=== PATIENT | female | born 1990 | race Caucasian/White ===

== ENCOUNTER → 2019-12-15 11:10 | Outpatient (BNVA) | payer SELFPAY | PROVIDERS: Visit Provider Nurse Practitioner Family | DX: J02.9 Acute pharyngitis, unspecified (principal) | CPT/HCPCS: 87081; 87880 ==

== ENCOUNTER → 2020-04-09 10:14 | Outpatient (BNVA) | payer SELFPAY | PROVIDERS: Visit Provider Nurse Practitioner Family | DX: M25.561 Pain in right knee (principal); R53.83 Other fatigue; Z13.6 Encounter for screening for cardiovascular disorders | CPT/HCPCS: 73562; 80053; 80061; 82306; 82607; 84443; 85025; 85651; 86038; 86140; 86431 ==

== ENCOUNTER → 2020-04-29 10:10 | Outpatient (BNVA) | payer SELFPAY | PROVIDERS: Visit Provider Nurse Practitioner Family | DX: D64.9 Anemia, unspecified (principal); M25.561 Pain in right knee; L40.9 Psoriasis, unspecified; E55.9 Vitamin D deficiency, unspecified | CPT/HCPCS: 85025 ==

== ENCOUNTER → 2020-06-17 11:49 | Outpatient (BNVA) | payer SELFPAY | PROVIDERS: Visit Provider Nurse Practitioner Family | DX: N89.8 Other specified noninflammatory disorders of vagina (principal); R30.0 Dysuria | CPT/HCPCS: 81000; 81025; 84450; 87070; 87491; 87591; 87661 ==

== ENCOUNTER → 2020-07-28 10:32 | Outpatient (BNVA) | payer OTHER, SELFPAY | PROVIDERS: Visit Provider Nurse Practitioner Family | DX: Z20.828 Contact with and (suspected) exposure to other viral communicable diseases (principal) | CPT/HCPCS: 87635 ==

== ENCOUNTER → 2021-05-17 13:15 | Outpatient (BNVA) | payer OTHER, SELFPAY | PROVIDERS: Visit Provider Nurse Practitioner Family | DX: Z20.822 Contact with and (suspected) exposure to COVID-19 (principal) | CPT/HCPCS: 87635 ==

== ENCOUNTER → 2021-07-14 10:10 | Outpatient (BNVA) | payer SELFPAY | PROVIDERS: Visit Provider Nurse Practitioner Family | DX: R53.83 Other fatigue (principal) | CPT/HCPCS: 80053; 81000; 81025; 82306; 82607; 84443; 85025 ==

== ENCOUNTER → 2021-08-11 10:58 | Outpatient (BNVA) | payer SELFPAY | PROVIDERS: Visit Provider Nurse Practitioner Family | DX: M79.671 Pain in right foot (principal) | CPT/HCPCS: 73630 ==

== ENCOUNTER → 2021-08-27 10:19 | Outpatient (BNVA) | payer SELFPAY | PROVIDERS: Visit Provider Nurse Practitioner Family | DX: R30.0 Dysuria (principal) | CPT/HCPCS: 81003 ==

== ENCOUNTER → 2021-09-10 09:40 | Outpatient (BNVA) | payer MEDICAID, SELFPAY | PROVIDERS: Visit Provider Nurse Practitioner Women's Health | DX: N92.6 Irregular menstruation, unspecified (principal) | CPT/HCPCS: 81025 ==

== ENCOUNTER → 2021-10-26 09:40 | Outpatient (BNVA) | payer SELFPAY | PROVIDERS: Visit Provider Obstetrics & Gynecology | DX: Z34.80 Encounter for supervision of other normal pregnancy, unspecified trimester (principal) | CPT/HCPCS: 80307; 81000; 82950; 85027; 86592; 86762; 86803; 86850; 86900; 87086; 87340; 87491; 87591; 87624; 87806 ==

== ENCOUNTER 2021-11-23 10:55 | Emergency (ER) | payer MEDICAID, SELFPAY ==
[2021-11-23 11:05] VITALS: BP 128/80; PULSE 94; RESP 18; TEMP 36.6; O2SAT 99; BMI 39.2
--- NOTE | 2021-11-23 11:30 | W.ED.GENADLT ---
Documented by User: JOSE Angulo 11/24/21 08:45 HPI - General Adult General: Chief complaint: General Medical Stated complaint: 15 wks , cramping, headache Time Seen by Provider: 11/23/21 11:19 History of Present Illness: HPI narrative: Patient presents with vaginal itching and whitish discharge and swelling of her labia. Patient states she just finished antibiotics and feels she probably developed a yeast infection she has some cramping down in the vaginal area denies any bleeding. She is Dr. Downs on a regular basis denies any fever chills nausea or vomiting. Onset (ago): day(s) (1-2) Location: genitals Associated symptoms: Reports no associated symptoms; Deny chest pain, dyspnea, headache(s), nausea, rash or vomiting Review of Systems Narrative: Patient is 15 weeks Const: Denies: fever(s), chills or body aches Eyes: Denies: change in vision or blurry vision ENMT: Denies: throat pain or nasal congestion Card: Denies: chest pain or dyspnea on exertion Resp: Denies: dyspnea, productive cough or non-productive cough GI: Denies: abdominal pain, nausea or vomiting : Reports: genital pruritis and vaginal discharge (Cramping vaginal area) Musc: Denies: extremity pain Skin/Breast: Denies: rash Neuro: Denies: headache(s) Psych: Denies: anxiety or depression Jorge L/Lymph: Denies: easy bruising PFSH ED PFSH: Medical History Constipation Psoriasis (a type of skin inflammation) Vitamin D insufficiency Surgical History History of cholecystectomy 2018 History of gastric bypass (~2013) Laparoscopic gastric bypass performed in [place]. The patient does not know what type of actual procedure was performed. Family History Mother Thyroid disease Family/Other Thyroid disease Maternal uncle Father Diabetes Denies family history of Colon cancer Ovarian cancer Heart disease Hyperlipidemia Breast cancer Hypertension Uterine cancer Stroke Social History Second hand smoke exposure: No Alcohol intake: never Caregiver/support person: Yes Lives independently: Yes Household members: spouse and children Marital status: service: No Current occupational status: unemployed History of recent travel: No Current gender identity: Female Special ralph needs: No Course Vital Signs: Vital signs: Vital Signs Temperature 97.9 F 11/23/21 11:05 Pulse Rate 76 11/23/21 11:33 Respiratory Rate 16 11/23/21 11:33 Blood Pressure 138/86 11/23/21 11:33 Pulse Oximetry 98 11/23/21 11:33 MDM - General Adult MDM Narrative Medical decision making narrative: Patient presents with vaginal itching and whitish discharge. Patient recently finished antibiotics and believes she developed a vaginal infection. Patient has intermittent discomfort in her low back. Patient doesn't appear in acute distress. I contacted Dr. Dang's office and they were supposed to call back and notify patient of possible appointment today or later. I did discuss treatment plan Dr. Ware. Patient was provided prescriptions as follow-up Dr. Downs's office. Discharge Plan Discharge Patient Disposition: Home Clinical Impression: Vaginal yeast infection Condition: Stable Prescriptions: New Monistat 7 2 % cream 1 appful vaginal ONCE Qty: 45 0RF Diflucan 150 mg tablet 150 mg PO Q3D Qty: 2 0RF No Action PNV 119-iron fum-folic acid 29 mg iron- 1 mg tablet PO 0RF cholecalciferol (vitamin D3) 10 mcg (400 unit) capsule 10 mcg PO DAILY 0RF amoxicillin 875 mg tablet 875 mg PO BID Qty: 20 0RF Discharge Orders: Discharge ED (Routine); Ordered 11/23/21 Ordered By: Santiago Beckford Discharge Diet: Usual diet Discharge Activity: Resume usual activity Patient Instructions: Yeast Infection (ED) Activity Restrictions/Additional Instructions: Follow-up with medical provider as directed. Take medications as prescribed. Return to the ER or your medical provider if condition worsens. Please read and understand discharge instructions. If any questions ask please. Contact Dr. Downs's office for follow-up appointment either later today or tomorrow. Drink plenty of fluids Coding Level of Care Code ED Electronics Commodity Manager for Chg Fwd Documented by User: Mahendra Ware DO 11/30/21 06:16 HPI - General Adult General: Chief complaint: General Medical Stated complaint: 15 wks , cramping, headache Time Seen by Provider: 11/23/21 11:19 PFSH ED PFSH: Medical History Constipation Psoriasis (a type of skin inflammation) Vitamin D insufficiency Surgical History History of cholecystectomy 2018 History of gastric bypass (~2013) Laparoscopic gastric bypass performed in [place]. The patient does not know what type of actual procedure was performed. Family History Mother Thyroid disease Family/Other Thyroid disease Maternal uncle Father Diabetes Denies family history of Colon cancer Ovarian cancer Heart disease Hyperlipidemia Breast cancer Hypertension Uterine cancer Stroke Social History Second hand smoke exposure: No Alcohol intake: never Caregiver/support person: Yes Lives independently: Yes Household members: spouse and children Marital status: service: No Current occupational status: unemployed History of recent travel: No Current gender identity: Female Special ralph needs: No Course Vital Signs: Vital signs: Vital Signs Temperature 97.9 F 11/23/21 11:05 Pulse Rate 76 11/23/21 11:33 Respiratory Rate 16 11/23/21 11:33 Blood Pressure 138/86 11/23/21 11:33 Pulse Oximetry 98 11/23/21 11:33 MDM - General Adult MDM Narrative Medical decision making narrative: Chart reviewed and patient discussed with midlevel. Agree with assessment and plan. Discharge Plan Discharge Patient Disposition: Home Clinical Impression: Vaginal yeast infection Condition: Stable Prescriptions: New Monistat 7 2 % cream 1 appful vaginal ONCE Qty: 45 0RF Diflucan 150 mg tablet 150 mg PO Q3D Qty: 2 0RF No Action PNV 119-iron fum-folic acid 29 mg iron- 1 mg tablet PO 0RF cholecalciferol (vitamin D3) 10 mcg (400 unit) capsule 10 mcg PO DAILY 0RF amoxicillin 875 mg tablet 875 mg PO BID Qty: 20 0RF Discharge Orders: Discharge ED (Routine); Ordered 11/23/21 Ordered By: Santiago Beckford Discharge Diet: Usual diet Discharge Activity: Resume usual activity Patient Instructions: Yeast Infection (ED) Activity Restrictions/Additional Instructions: Follow-up with medical provider as directed. Take medications as prescribed. Return to the ER or your medical provider if condition worsens. Please read and understand discharge instructions. If any questions ask please. Contact Dr. Downs's office for follow-up appointment either later today or tomorrow. Drink plenty of fluids Coding Level of Care Code ED Electronics Commodity Manager for Shayan Judge
[2021-11-23 11:33] VITALS: BP 138/86; PULSE 76; RESP 16; O2SAT 98
--- NOTE | 2021-11-24 16:11 | DCPLANNER ---
Addendum entered by Lubna Way 12/03/21 07:08: Patient had a follow up appointment scheduled 11.30.21 with [facility] - patient did attend appointment. Original Note: framing manager had message that patient needed a follow up appointment at [facility]. framing manager called the [facility], spoke with Will, gave clinic patients information. framing manager was told that patients information would be printed and reviewed. Clinic will call patient with appointment information.
== END 2021-11-23 11:36 | disposition home or self-care (01) ==
LOC: ER 11:29
PROVIDERS: Emergency Provider Nurse Practitioner Family
DX: B37.3 Candidiasis of vulva and vagina (principal)
CPT/HCPCS: 12345; 99283

== ENCOUNTER 2021-11-23 12:51 | Emergency (ER) | payer MEDICAID, SELFPAY ==
[2021-11-23 12:57] VITALS: BP 122/80; PULSE 94; RESP 18; TEMP 36.3; O2SAT 100; BMI 39.2
--- NOTE | 2021-11-23 14:01 | W.ED.PREGNAN ---
HPI - General: Chief complaint: OB/Uterine Contractions Stated complaint: cramping, 15 weeks Time Seen by Provider: 11/23/21 12:59 History of Present Illness: HPI Narrative: Patient went to Dr. Downs's office and was taken back by a nurse and they contacted Dr. Downs and he said she needs come back to the ER. Think she might need COVID testing. Patient says she is having cramping across her low back and has a headache. Is having increased urinary frequency and still has same symptoms of vaginal discharge which is whitish and swelling of the labia. heart tones done and they are 130. Patient has a headache but does not have any other COVID symptoms. MD Complaint: other (Headache and cramping in her low back) Onset (ago): hour(s) Pain Consistency: constant Location: flank (Bilateral) Severity: moderate Vaginal discharge: other (Whitish and itching) Vaginal bleeding: none OB History - Current : no complications care: followed by OB Associated symptoms: Reports headache(s); Deny abdominal pain, nausea or vomiting Related Data: : 6 Review of Systems Const: Denies: fever(s), chills or body aches Eyes: Denies: change in vision or blurry vision ENMT: Denies: throat pain or nasal congestion Card: Denies: chest pain or dyspnea on exertion Resp: Denies: dyspnea, productive cough or non-productive cough GI: Denies: abdominal pain, nausea or vomiting Musc: Reports: back pain (Cramping bilateral flanks); Denies: extremity pain Skin/Breast: Denies: rash Neuro: Reports: headache(s) Psych: Denies: anxiety or depression Jorge L/Lymph: Denies: easy bruising PFSH ED PFSH: Medical History Constipation Psoriasis (a type of skin inflammation) Vitamin D insufficiency Surgical History History of cholecystectomy 2018 History of gastric bypass (~2013) Laparoscopic gastric bypass performed in [place]. The patient does not know what type of actual procedure was performed. Family History Mother Thyroid disease Family/Other Thyroid disease Maternal uncle Father Diabetes Denies family history of Colon cancer Ovarian cancer Heart disease Hyperlipidemia Breast cancer Hypertension Uterine cancer Stroke Social History Second hand smoke exposure: No Alcohol intake: never Caregiver/support person: Yes Lives independently: Yes Household members: spouse and children Marital status: service: No Current occupational status: unemployed History of recent travel: No Current gender identity: Female Special ralph needs: No Female Reproductive History: : 6 Physical Exam Const: COMMON NORMALS: patient oriented x3 GENERAL APPEARANCE: cooperative Resp: COMMON NORMALS: normal respiratory effort Cardio: COMMON NORMALS: regular rate and regular rhythm RATE: regular rate RHYTHM: regular rhythm Neuro: COMMON NORMALS: patient oriented x3 Skin: COMMON NORMALS: no rashes or lesions noted GENERAL SKIN EXAM: no rashes or lesions noted Course Vital Signs: Vital signs: Vital Signs Temperature 97.3 F L 11/23/21 12:57 Pulse Rate 84 11/23/21 16:07 Respiratory Rate 16 11/23/21 16:07 Blood Pressure 127/86 11/23/21 16:07 Pulse Oximetry 100 11/23/21 16:07 MDM - OB/Uterine Contractions MDM Narrative: Medical decision making narrative: Patient presents here with low back pain bilaterally. Patient also states she has a headache. Patient had lab work done given IV fluids along with Toradol. Lab is basically noncontributory except mild UTI. Patient responded well to fluids and Toradol headache is gone patient states she feels much better patient placed on Keflex instructed follow back up with Dr. Fajardo's office and continue with her yeast medication also. Baby weeks heart rate was 130. Lab Data: Labs: Lab Results 11/23/21 11/23/21 11/23/21 14:35 14:35 15:40 WBC 4.9 10^3/uL 10^3/ uL (4.0-10.0) RBC 4.60 10^6/uL 10^6 /uL (4.1-5.3) Hgb 12.2 g/dL g/dL (11.5-15.3) Hct 35.6 % L % (37.0-47.0) MCV 77.4 fl L fl (81-99) MCH 26.5 pg L pg (28.0-34.0) MCHC 34.3 g/dL g/dL (30.0-36.0) RDW 16.9 % H % (12.1-15.1) Plt Count 213 10^3/cmm 10^3 /cmm (130-400) MPV 10.5 fL H fL (7.4-10.4) Neut % (Auto) 85.0 % % Lymph % (Auto) 6.6 % % [place] % (Auto) 7.2 % % Eos % (Auto) 0.0 % % Baso % (Auto) 0.6 % % Neut # (Auto) 4.14 10^3/uL 10^3 /uL (1.8-7.7) Lymph # (Auto) 0.3 10^3/uL L 10^ 3/uL (0.8-4.8) [place] # (Auto) 0.4 10^3/uL 10^3/ uL (0.2-0.9) Eos # (Auto) 0.0 10^3/uL 10^3/ uL (0.0-0.8) Baso # (Auto) 0.0 10^3/uL 10^3/ uL (0.0-0.1) Nucleated RBC % (a uto) 0 % % Nucleated RBCs # 0.0 /100WBC /100W BC Sodium 132 mmol/L L mmol /L (136-145) Potassium 3.6 mmol/L mmol/L (3.5-5.1) Chloride 99 mmol/L mmol/L (98-107) Carbon Dioxide 18 mmol/L L mmol/ L (22-29) Anion Gap 18.6 (5-19) BUN 3 mg/dL L mg/dL (6-20) Creatinine 0.4 mg/dL L mg/dL (0.5-0.9) GFR Calculation 187.4 mL/min H mL /min (90-130) Glucose 92 mg/dL mg/dL (65-115) Calculated Osmolal ity 270 mOsm/kg L mOs m/kg (285-295) Calcium 8.1 mg/dL L mg/dL (8.5-10.5) Urine Color Yellow (Yellow) Urine Appearance Sl hazy (CLEAR) Urine pH 5 (5-7) Ur Specific Gravit y 1.025 (1.005-1.030) Urine Protein Neg (Negative) Urine Glucose (UA) Norm (Normal) Urine Ketones 2+ H (Negative) Urine Blood Neg (Negative) Urine Nitrate Negative (Negative) Urine Bilirubin Neg (Negative) Urine Urobilinogen Norm mg/dL mg/dL (Negative) Ur Leukocyte Jayleen ase 2+ H (Negative) Urine RBC 0-4 /hpf H /hpf (0-2) Urine WBC 10-15 /hpf H /hpf (0-5) Ur Squamous Epith Cells 15-25 /hpf H /hpf (0-5) Amorphous Sediment Not Reportable Urine Bacteria 1+ /hpf H /hpf (NONE) Urine Yeast Trace /hpf /hpf Discharge Plan Discharge Patient Disposition: Home Clinical Impression: UTI (urinary tract infection) Qualifiers: Urinary tract infection type: acute cystitis Hematuria presence: without hematuria Qualified Code(s): N30.00 - Acute cystitis without hematuria Condition: Stable Prescriptions: New cephalexin 500 mg capsule 500 mg PO Q8H 7 Days Qty: 21 RF: 0 No Action PNV 119-iron fum-folic acid 29 mg iron- 1 mg tablet PO RF: 0 cholecalciferol (vitamin D3) 10 mcg (400 unit) capsule 10 mcg PO DAILY RF: 0 amoxicillin 875 mg tablet 875 mg PO BID Qty: 20 RF: 0 Monistat 7 2 % cream 1 appful vaginal ONCE Qty: 45 RF: 0 Diflucan 150 mg tablet 150 mg PO Q3D Qty: 2 RF: 0 Discharge Orders: Discharge ED (Routine); Ordered 11/23/21 Ordered By: Santiago Beckford Discharge Diet: Usual diet Discharge Activity: Increase activity as tolerated Patient Instructions: Urinary Tract Infection in (ED) Activity Restrictions/Additional Instructions: Follow-up with medical provider as directed. Take medications as prescribed. Return to the ER or your medical provider if condition worsens. Please read and understand discharge instructions. If any questions ask please. Coding Level of Care Code ED Knockout Machine Operator for Chg Fwd Exam Expanded Problem Focused
[2021-11-23] MEDS: sodium chloride 0.9% 1,000 ML 999 ML IV (14:43)
[2021-11-23 14:45] LABS: Basophils % 0.6 %; Hematocrit 35.6 % (37.0-47.0); Hemoglobin 12.2 g/dL (11.5-15.3); Lymphocytes # 0.3 10^3/uL (0.8-4.8); Lymphocytes % 6.6 %; Mean Corpuscular HGB Conc 34.3 g/dL (30.0-36.0); Mean Corpuscular Hemoglobin 26.5 pg (28.0-34.0); Mean Corpuscular Volume 77.4 fl (81-99); Mean Platelet Volume 10.5 fL (7.4-10.4); Monocytes # 0.4 10^3/uL (0.2-0.9); Monocytes % 7.2 %; Neutrophils # 4.14 10^3/uL (1.8-7.7); Nucleated Red Blood Cells % 0 %; Platelet Count 213 10^3/cmm (130-400); Red Cell Distribution Width 16.9 % (12.1-15.1); White Blood Count 4.9 10^3/uL (4.0-10.0)
[2021-11-23] MEDS: ketorolac 30 mg/mL INJ 15 MG IVP (14:57)
[2021-11-23 15:09] LABS: Blood Urea Nitrogen 3 mg/dL (6-20); Calcium 8.1 mg/dL (8.5-10.5); Carbon Dioxide 18 mmol/L (22-29); Chloride 99 mmol/L (98-107); Glomerular Filtration Rate 187.4 mL/min (90-130); Glucose 92 mg/dL (65-115); Osmolality Calculated 270 mOsm/kg (285-295); Sodium 132 mmol/L (136-145)
[2021-11-23 15:11] LABS: Anion Gap 18.6 (5-19); Potassium 3.6 mmol/L (3.5-5.1)
[2021-11-23 15:56] LABS: Add Urine Microscopic? YES; Bilirubin Urine Neg (Negative); Blood Urine Neg (Negative); Glucose Urine UA Norm (Normal); Ketones Urine 2+ (Negative); Leukocyte Esterase Urine 2+ (Negative); Nitrate Urine Negative (Negative); Protein Urine Neg (Negative); Specific Gravity, Urine 1.025 (1.005-1.030); Urine Appearance SL Hazy (CLEAR); Urine Color Yellow (Yellow); Urobilinogen Urine Norm (Negative); pH Urine 5 (5-7)
[2021-11-23 16:04] LABS: RBC Urine 0-4 /hpf (0-2)
[2021-11-23 16:05] LABS: Add Urine Culture? No; Bacteria Urine 1+ /hpf; Squamous Epithelial Cell Urine 15-25 /hpf (0-5)
[2021-11-23 16:07] VITALS: BP 127/86; PULSE 84; RESP 16; O2SAT 100
== END 2021-11-23 16:40 | disposition home or self-care (01) ==
PROVIDERS: Emergency Provider Nurse Practitioner Family
DX: N30.00 Acute cystitis without hematuria (principal)
CPT/HCPCS: 80048; 81001; 85025; 96361; 96374; 99284; J1885; J7030

== ENCOUNTER → 2021-12-28 09:59 | Outpatient (BNVA) | payer MEDICAID, SELFPAY | PROVIDERS: Visit Provider Obstetrics & Gynecology | DX: Z36.89 Encounter for other specified antenatal screening (principal) | CPT/HCPCS: 76805 ==

== ENCOUNTER → 2021-12-31 10:49 | Outpatient (BNVA) | payer MEDICAID, SELFPAY | PROVIDERS: Visit Provider Obstetrics & Gynecology | DX: O23.40 Unspecified infection of urinary tract in pregnancy, unspecified trimester (principal); Z3A.00 Weeks of gestation of pregnancy not specified | CPT/HCPCS: 81000; 87077; 87086; 87184 ==

== ENCOUNTER → 2022-01-13 13:47 | Outpatient (BNVA) | payer MEDICAID, SELFPAY | PROVIDERS: Visit Provider Nurse Practitioner Family | DX: O23.42 Unspecified infection of urinary tract in pregnancy, second trimester (principal); Z3A.00 Weeks of gestation of pregnancy not specified | CPT/HCPCS: 81000; 81003 ==

== ENCOUNTER → 2022-01-25 09:43 | Outpatient (BNVA) | payer MEDICAID, SELFPAY | PROVIDERS: Visit Provider Obstetrics & Gynecology | DX: Z34.80 Encounter for supervision of other normal pregnancy, unspecified trimester (principal) | CPT/HCPCS: 82950; 84315 ==

== ENCOUNTER → 2022-01-26 13:48 | Outpatient (BNVA) | payer MEDICAID, SELFPAY | PROVIDERS: Visit Provider Obstetrics & Gynecology | DX: Z36.2 Encounter for other antenatal screening follow-up (principal) | CPT/HCPCS: 76816 ==

== ENCOUNTER → 2022-02-22 10:18 | Outpatient (BNVA) | payer MEDICAID, SELFPAY | PROVIDERS: Visit Provider Obstetrics & Gynecology | DX: Z34.80 Encounter for supervision of other normal pregnancy, unspecified trimester (principal) | CPT/HCPCS: 84315; 85027 ==

== ENCOUNTER → 2022-04-22 12:58 | Outpatient (BNVA) | payer MEDICAID, SELFPAY | PROVIDERS: Visit Provider Obstetrics & Gynecology | DX: Z34.90 Encounter for supervision of normal pregnancy, unspecified, unspecified trimester (principal) | CPT/HCPCS: 84315; 87081 ==

== ENCOUNTER 2022-04-29 09:45 | Outpatient (CLI) | payer MEDICAID, SELFPAY ==
[2022-04-29 10:00] VITALS: BMI 40.6
[2022-04-29 10:01] VITALS: BP 126/58; PULSE 70
[2022-04-29 10:06] VITALS: TEMP 35.9
[2022-04-29 10:54] VITALS: RESP 17
[2022-04-29 11:16] VITALS: BP 110/78; PULSE 73
[2022-04-29 11:21] VITALS: BP 110/78; PULSE 73; RESP 17
== END 2022-04-29 11:21 | disposition home or self-care (01) ==
LOC: OPOB 09:49 → OBGYN 09:54
PROVIDERS: Visit Provider Obstetrics & Gynecology
DX: O26.899 Other specified pregnancy related conditions, unspecified trimester (principal); Z3A.00 Weeks of gestation of pregnancy not specified; R10.9 Unspecified abdominal pain
CPT/HCPCS: 59025; 99211

== ENCOUNTER 2022-04-29 19:42 | Inpatient (IN) | payer MEDICAID, SELFPAY ==
[2022-04-29] VITALS (43 sets, daily range): BP systolic 99–156; BP diastolic 52–76; PULSE 61–86; RESP 17–20; O2SAT 88–100; BMI 40.6
[2022-04-29 21:19] LABS: Basophils # 0.1 10^3/uL (0.0-0.1); Basophils % 0.5 %; Eosinophils # 0.1 10^3/uL (0.0-0.8); Eosinophils % 0.3 %; Hematocrit 36.4 % (37.0-47.0); Hemoglobin 12.6 g/dL (11.5-15.3); Lymphocytes # 2.5 10^3/uL (0.8-4.8); Lymphocytes % 15.2 %; Mean Corpuscular HGB Conc 34.6 g/dL (30.0-36.0); Mean Corpuscular Hemoglobin 27.8 pg (28.0-34.0); Mean Corpuscular Volume 80.2 fl (81-99); Mean Platelet Volume 10.9 fL (7.4-10.4); Monocytes # 0.8 10^3/uL (0.2-0.9); Neutrophils # 12.71 10^3/uL (1.8-7.7); Neutrophils % 78.3 %; Nucleated Red Blood Cells % 0 %; Platelet Count 268 10^3/cmm (130-400); Red Blood Count 4.54 10^6/uL (4.1-5.3); Red Cell Distribution Width 13.5 % (12.1-15.1); White Blood Count 16.2 10^3/uL (4.0-10.0)
[2022-04-29] MEDS: lactated ringers 1,000 ML 999 ML IV ×2 (21:20→22:31)
[2022-04-29] MEDS: fentaNYL 50 mcg/mL INJ 2mL IVP (21:23)
--- NOTE | 2022-04-29 21:48 | PM.OPHPUD ---
Labor & Delivery H&P Update Date of Procedure: April 29, 2022 Date H&P Performed: 04/22/22 H&P update information: I have reviewed H&P completed within last 30 days, I have examined patient prior to procedure and Changes to prior documentation as noted here Changes to previous documentation: iup@ 37w5d presents for painful contractions. Cervix changed from 2cm to 6 cm and patient admitted for labor. status overall very reassuring. Admission Diagnosis: Related Problem List Diagnoses (1) Obesity affecting : (2) Supervision of other normal :
[2022-04-29] MEDS: oxytocin 30 UNIT/500 ML BAG 600 UNIT IV (23:30)
--- NOTE | 2022-04-29 23:38 | P.PCNOB_ITS ---
Delivery Note: Date of delivery: April 29, 2022 Pre-delivery diagnoses: iup@37w5d, spontaneous labor Post-delivery diagnoses: same-delivered Procedure: Delivering Physician: Conchis Estimated blood loss (mL): 5 Findings: term female in the DIO presentation Pre-Delivery Course: The patient presented for contractions. She was observed for 2 hours and was alexia about every 3 minutes. Her cervix made a small amount of change and she was admitted. She went from 3 cm to 6 cm in a couple of hours. She received an epidural for pain control, but it didn't give her any relief. She had complete cervical dilation. AROM of clear fluid and the patient began to push. Delivery: The patient had complete cervical dilation and began to push. The head delivered in the DIO position over an intact perineum under epidural anesthesia. The nose and mouth were bulb suctioned. The shoulders and body delivered atraumatically. The baby was placed onto the mother's abdomen. The cord was clamped and cut. Cord blood was obtained. The placenta delivered spontaneously. It was inspected and found to be intact. Inspection of the perineum revealed no repair was required and no lacerations. Estimated blood loss 5 mL. Apgars on baby were 8 at 1 minute and 9 at 5 minutes. Weight of baby is 6 pounds 14 ounces. Mother and baby were stable post delivery. History History History 6 Term 3 Miscarriages/Ectopic 2 0 Living Children 3 Coding Level of Care Code Acute Accounts Receivable Manager for Shayan Judge
[2022-04-30] VITALS (59 sets, daily range): BP systolic 97–155; BP diastolic 53–80; PULSE 48–76; RESP 16–23; TEMP 36.5–37.7; O2SAT 91–100
[2022-04-30] MEDS: miSOPROStol 200 mcg Tablet 800 MCG PR (00:25)
[2022-04-30] MEDS: lanolin oint 7 gm 1 APPLIC TOPICAL (01:02)
[2022-04-30] MEDS: benzocaine-menthol 78 gm Canister 1 SPRAY TOPICAL (01:02)
[2022-04-30] MEDS: loperamide 2 mg Capsule 4 MG PO (03:31)
[2022-04-30] MEDS: hyDROXYzine 25 mg Capsule 50 MG PO (03:33)
[2022-04-30] MEDS: HYDROcodone-acetaminophen 5-325 mg Tablet PO ×2 (03:33→17:12)
--- NOTE | 2022-04-30 07:15 | ANES.PREANE2 ---
Pre-Anesthetic Assessment Height/Weight: Height 1.65 m Weight 110.677 kg Temp Pulse Resp BP Pulse Ox 98.1 F 64 16 118/63 98 04/30/22 04:51 04/30/22 07:03 04/30/22 04:51 04/30/22 07:03 04/29/22 23:11 Preop Diagnosis: undesired fertility Operation Date: 04/30/22 12:10 Proposed Procedures p Post Bilateral Tubal Ligation(Bilateral) - Rosa Isela Balderrama MD Familial anesthetic complications: None Was Beta Cy taken within 24 hours: N/A Was Clonidine taken within 24 hours: N/A Last intake: Solids 04/29/2022 Clear liquid @ 0200 on 05/30/2022 Social No alcohol and No tobacco Exam alert, oriented x 3, clear to auscultation bilaterally and regular rate & rhythm Airway Submandibular: within normal limits Cervical ROM: within normal limits Mallampati: Class I Dentition: chipped (Multiple chipped teeth ) History/ROS No significant complaints Pulmonary None reported CV/HEM None reported Hgb 12.6 Plt 268 None reported Hepatic None reported GI None reported Metabolic Morbid Obesity s/p gastric bypass hx of cholecystecotmy Musc/skel None reported Hx of psoriasis Neuropsych None reported Anesthetic Plan ASA status: 2 Anesthesia: Anesthesia Evaluation and Regional (specify below) (Spinal) Other: We discussed risk and benefits of spinal anesthesia including infection, paralysis/catastrophic nerve injury, back bruising/pain, PDPH, conversion to general in case of spinal failure, intraoperative and PONV, life threatening allergic reaction, post operative ICU admission requiring prolonged intubation, stroke, heart attack. Risk of > 500 ml blood loss (7ml/kg in children): No Medications/Allergies Home Medications Medication Instructions Recorded Confirmed Last Taken Type vitamins no.119-iron 1 tab PO DAILY 06/14/21 04/29/22 Unknown History fumarate 29 mg-folic acid 1 mg tablet breast pump #1 ea 04/05/22 04/29/22 Unknown Rx Allergies Allergy/AdvReac Type Severity Reaction Status Date / Time adhesive tape Allergy Mild ALGY-Bliste Verified 04/29/22 11:09 r Current Medications Generic Name Dose Route Start Last Admin Trade Name Freq PRN Reason Stop Dose Admin Hydrocodone Bitart/Acetaminophen 1 - 2 tab 04/29/22 23:37 04/30/22 03:33 Hydrocodone-Acetaminophen 5-325 Mg Tablet PO 1 tab Q6H PRN Administration MODERATE TO SEVERE PAIN Benzocaine 1 spray 04/29/22 23:37 04/30/22 01:02 Benzocaine-Menthol 78 Gm Canister TOPICAL 1 can PRN PRN Administration PAIN Hydroxyzine Pamoate 50 mg 04/29/22 21:00 04/30/22 03:33 Hydroxyzine 25 Mg Capsule PO 50 mg QID PRN Administration sleep, agitation or itching Dextrose/Lactated Ringer's 1,000 mls @ 125 mls/hr 04/29/22 21:00 04/30/22 06:28 Dextrose 5%-Lactated Ringers IV Not Given .Q8H TUNDE Oxytocin 30 unit in 500 mls @ 600 mls/hr 04/29/22 21:00 04/30/22 00:45 Pitocin IV Infused .Q50M PRN Titration After delivery of infant Protocol Tranexamic Acid 1,000 mg/ 110 mls @ 330 mls/hr 04/29/22 21:00 04/30/22 00:41 Sodium Chloride IV Infused Q30M PRN Infusion BLEEDING Lanolin 1 applic 04/29/22 23:37 04/30/22 01:02 Lanolin Oint 7 Gm TOPICAL 1 tube PRN PRN Administration DRYNESS PFSH Anesthesia Medical History Constipation Psoriasis (a type of skin inflammation) Vitamin D insufficiency Surgical History History of cholecystectomy 2018 History of gastric bypass (~2013) Laparoscopic gastric bypass performed in [place]. The patient does not know what type of actual procedure was performed. Family History Mother Thyroid disease Family/Other Thyroid disease Maternal uncle Father Diabetes Denies family history of Colon cancer Ovarian cancer Heart disease Hyperlipidemia Breast cancer Hypertension Uterine cancer Stroke Social History Smoking and tobacco status: never smoked Second hand smoke exposure: No Alcohol intake: never Caregiver/support person: Yes Lives independently: Yes service: No History of recent travel: No Special ralph needs: No Female Reproductive History : 6 Data Anesthesia : 04/29/22 21:10 Short CBC 04/29/22 Range/Units 21:10 WBC 16.2 H (4.0-10.0) 10^3/uL Hgb 12.6 (11.5-15.3) g/dL Hct 36.4 L (37.0-47.0) % MCV 80.2 L (81-99) fl Plt Count 268 (130-400) 10^3/cmm Neut % (Auto) 78.3 % Neut # (Auto) 12.71 H (1.8-7.7) 10^3/uL Cardiac Studies: No Data to Display
--- NOTE | 2022-04-30 08:29 | ANE.PACU2 ---
Inpatient post-anesthesia follow up: Airway intact: Yes Vital signs: Temperature 98.1 F Pulse Rate 64 Respiratory Rate 16 Blood Pressure 118/63 Pulse Oximetry 98 Oxygen Delivery Me thod Room Air Oxygen Flow Rate Fraction of Inspir ed Oxygen Hydration adequate: Yes Nausea and vomiting: No Pain level: 1 Mental status: Baseline
--- NOTE | 2022-04-30 11:29 | PM.PN ---
Subjective Subjective: The patient is doing well this morning. She desires a tubal ligation and has been NPO since delivery Vitals/I&O/Wt Last Vital Signs Temp 98.2 F 04/30/22 09:15 Pulse 60 04/30/22 09:15 Resp 18 04/30/22 09:15 BP 115/77 04/30/22 09:15 Pulse Ox 98 04/30/22 09:15 04/29/22 04/30/22 04/30/22 22:59 06:59 14:59 Intake Total 1333 / 1333 919.683 / 2252.683 Output Total 300 / 300 Balance 1333 / 1333 619.683 / 1952.683 Weight last 48 hrs Weight 244 lb Physical Exam Const: COMMON NORMALS: no acute distress, patient oriented x3, no limitations, healthy appearing, alert and well nourished GENERAL APPEARANCE: cooperative, comfortable, well kempt and well developed ORIENTATION/CONSCIOUSNESS: Yes awake, Yes oriented to person, Yes oriented to place and Yes oriented to time Resp: COMMON NORMALS: normal respiratory effort EFFORT & INSPECTION: Yes able to speak in complete sentences GI: COMMON NORMALS: Soft to palpation and non-tender PALPATION: Yes Soft to palpation Extremity: COMMON NORMALS: no calf tenderness Neuro: COMMON NORMALS: patient oriented x3 SENSORIUM/ORIENTATION: Yes alert, Yes oriented to person, Yes oriented to place and Yes oriented to time Psych: APPEARANCE: Yes well kempt Data : 04/29/22 21:10 A&P Assessment and plan (1) Supervision of other normal : routine PP care plan tubal ligation today Status: Acute (2) Sterilization consult: Status: Acute Attestations Medical Necessity Statement*: The patient delivered before midnight last night. she will be her at least 2 midnights. Coding Level of Care Code Acute Publicity Writer for Shayan Fwd Diagnoses Supervision of other normal Z34.80 Sterilization consult Z30.09
[2022-04-30 12:55] LABS: Hematocrit 35.3 % (37.0-47.0); Hemoglobin 12.3 g/dL (11.5-15.3); Mean Corpuscular HGB Conc 34.8 g/dL (30.0-36.0); Mean Corpuscular Volume 80.4 fl (81-99); Mean Platelet Volume 10.6 fL (7.4-10.4); Platelet Count 244 10^3/cmm (130-400); Red Blood Count 4.39 10^6/uL (4.1-5.3); Red Cell Distribution Width 13.4 % (12.1-15.1); White Blood Count 12.8 10^3/uL (4.0-10.0)
--- NOTE | 2022-04-30 15:14 | PM.OP ---
Operative Report Date of procedure: April 30, 2022 Pre-op diagnosis: Preop Diagnosis undesired fertility Post-op diagnosis: same Post-op findings: normal appearing uterus, tubes and ovaries Procedure done: post bilateral tubal ligation Specimens removed/disposition: segments of bilateral fallopian tubes to pathology Surgeon: Rosa Isela Balderrama Anesthesia: Other (spinal) Estimated blood loss (mL): 0 IV fluids (mL): 300 Complications: none Condition: stable Disposition: floor Procedure: The patient was taken to the operating room where spinal anesthesia was administered and found to be adequate. She was prepped and draped in the usual fashion in the dorsal supine position. An infraumbilical incision was made and carried down to the underlying layer of fascia. The fascia was nicked in the midline and the peritoneum entered sharply with the Metzenbaum scissors. The the patient was tilted to the right and the fallopian tube identified. The fallopian tube was grasped with a Valencia clamp and the clamp was walked down the tube to the fimbria. An area mid tube was grasped and elevated and a window was made in the mesosalpinx. The fallopian tube was doubly ligated and then a segment of the tube was removed with the Metzenbaum scissors. There was excellent hemostasis. The fallopian tube was returned to the abdomen. The patient was then tilted to the left and using the same procedure the fallopian tube was grasped and elevated. The Choco clamps were walked down to the fimbria. A segment in the mid tube was elevated and a window made in the mesosalpinx. The fallopian tube was doubly ligated and a section removed with the Metzenbaum scissors. The fallopian tube was returned to the abdomen. There was excellent hemostasis. The fascia was closed with 0 Vicryl. The skin was closed with 3-0 Vicryl. The patient tolerated the procedure well. Sponge lap and needle counts were correct x3. She was taken to the recovery room in stable condition.
[2022-04-30] MEDS: docusate sodium 100 mg Capsule PO (16:20)
[2022-04-30] MEDS: ketorolac 30 mg/mL INJ IVP (21:38)
[2022-05-01] MEDS: ketorolac 30 mg/mL INJ IVP ×3 (03:15→14:15)
[2022-05-01 05:19] VITALS: BP 103/58; PULSE 67
[2022-05-01 05:25] VITALS: TEMP 36.9
[2022-05-01 05:41] LABS: Hematocrit 36.8 % (37.0-47.0); Hemoglobin 12.6 g/dL (11.5-15.3); Mean Corpuscular HGB Conc 34.2 g/dL (30.0-36.0); Mean Corpuscular Hemoglobin 27.9 pg (28.0-34.0); Mean Corpuscular Volume 81.6 fl (81-99); Mean Platelet Volume 10.7 fL (7.4-10.4); Platelet Count 226 10^3/cmm (130-400); Red Blood Count 4.51 10^6/uL (4.1-5.3); Red Cell Distribution Width 13.8 % (12.1-15.1); White Blood Count 9.8 10^3/uL (4.0-10.0)
--- NOTE | 2022-05-01 08:26 | ANE.PACU2 ---
Inpatient post-anesthesia follow up: Airway intact: Yes Vital signs: Temperature 98.4 F Pulse Rate 67 Respiratory Rate 20 Blood Pressure 103/58 Pulse Oximetry 100 Oxygen Delivery Me thod Room Air Oxygen Flow Rate Fraction of Inspir ed Oxygen Hydration adequate: Yes Nausea and vomiting: No Pain level: 2 Mental status: Baseline
[2022-05-01] MEDS: prenatal vitamin Capsule 1 CAP PO (08:37)
[2022-05-01] MEDS: docusate sodium 100 mg Capsule PO (08:37)
[2022-05-01 10:00] VITALS: RESP 16; TEMP 36.8
[2022-05-01 10:31] VITALS: BP 103/65; PULSE 57
--- NOTE | 2022-05-01 13:04 | PM.OBGYDC ---
Discharge Providers BRUSH WORKER Date of Admission: 04/29/22 21:01 Date of Discharge: 05/01/22 Attending Provider at Admission: Rosa Isela Balderrama MD Attending Provider at Discharge: Chase Downs MD Primary BRUSH WORKER: Chase Downs MD Diagnoses at Discharge Discharge Diagnosis (1) Supervision of other normal : Status: Acute (2) Sterilization consult: Status: Acute (3) Term delivered: Status: Acute (4) Status post bilateral salpingectomy: Status: Acute Reason for Visit Reason for Visit: Contractions Hospital Course Hospital Course Ms. Chapman is a 31 year old established patient with LMP of 08/08/2021, FAIZA 05/15/2022 based on LMP. Came into labor and delivery with an estimated gestational age of 37+5 weeks complaining of contractions. She had a rapid progression of labor and had a spontaneous vaginal delivery without epidural or complications. Immediate recovery was uneventful. She had requested permanent sterilization and has signed a consent prior for tubal ligation. tubal Acacian was performed without complications also. Immediate postop observation was uneventful. She is afebrile hemodynamically stable. Postoperative day 1. Tolerating diet well. Ambulating without difficulty. Information Peripartum Data: Infant Delivery Method: Vaginal Physical Exam Narrative: GA; alert and oriented x 3 HEENT: normal Breasts: engorged Nipples - skin intact Lungs; clear to auscultation Heart: regular rhythm, no murmurs. Abd: Appropriately tender. BS+. Uterine fundus below umbilicus. No Fundal Tenderness. minimal tenderness, incision clean and dry, no redness, pain or edema. Perineum: normal lochia. Extremities: no edema, no cyanosis, no tenderness. History History History 6 Term 3 Miscarriages/Ectopic 2 0 Living Children 3 Discharge Data Studies Completed and Pending Pending at discharge Category Date Time Status Pathology: Surgical [PTH] Routine Pth 04/30/22 14:57 Ordered Laboratory Results WBC 9.8 10^3/uL (4.0-10.0) 05/01/22 05:20 RBC 4.51 10^6/uL (4.1-5.3) 05/01/22 05:20 Hgb 12.6 g/dL (11.5-15.3) 05/01/22 05:20 Hct 36.8 % (37.0-47.0) L 05/01/22 05:20 MCV 81.6 fl (81-99) 05/01/22 05:20 MCH 27.9 pg (28.0-34.0) L 05/01/22 05:20 MCHC 34.2 g/dL (30.0-36.0) 05/01/22 05:20 RDW 13.8 % (12.1-15.1) 05/01/22 05:20 Plt Count 226 10^3/cmm (130-400) 05/01/22 05:20 MPV 10.7 fL (7.4-10.4) H 05/01/22 05:20 Neut % (Auto) 78.3 % 04/29/22 21:10 Lymph % (Auto) 15.2 % 04/29/22 21:10 [place] % (Auto) 5.0 % 04/29/22 21:10 Eos % (Auto) 0.3 % 04/29/22 21:10 Baso % (Auto) 0.5 % 04/29/22 21:10 Neut # (Auto) 12.71 10^3/uL (1.8-7.7) H 04/29/22 21:10 Lymph # (Auto) 2.5 10^3/uL (0.8-4.8) 04/29/22 21:10 [place] # (Auto) 0.8 10^3/uL (0.2-0.9) 04/29/22 21:10 Eos # (Auto) 0.1 10^3/uL (0.0-0.8) 04/29/22 21:10 Baso # (Auto) 0.1 10^3/uL (0.0-0.1) 04/29/22 21:10 Nucleated RBC % (auto) 0 % 04/29/22 21:10 Nucleated RBCs # 0.0 /100WBC 04/29/22 21:10 Vitals Last Vital Signs Temp 98.2 F 05/01/22 10:00 Pulse 57 L 05/01/22 10:31 Resp 16 05/01/22 10:00 BP 103/65 05/01/22 10:31 Pulse Ox 100 04/30/22 17:12 Discharge Plan Discharge Patient Disposition: Home Condition: Stable Prescriptions: New hydrocodone-acetaminophen 5-325 mg tablet 1 tab PO Q4H PRN (Reason: pain) Qty: 20 0RF acetaminophen 325 mg capsule 325 mg PO Q4H PRN (Reason: fever or pain) Qty: 60 0RF Continued PNV 119-iron fum-folic acid 29 mg iron- 1 mg tablet 1 tab PO DAILY 0RF (DME) breast pump Device See Rx Instructions .Route Qty: 1 0RF Rx Instructions: As directed Discharge Orders: Discharge Order (Routine); Ordered 05/01/22 Ordered By: Chase Downs Referrals: Chase Downs MD [Physician] - 2 weeks Discharge Diet: Usual diet Discharge Activity: Limit activity as instructed Patient Instructions: Depression (DC), Bleeding (DC), Preeclampsia and Eclampsia After Delivery (GEN), Tubal Ligation (DC), OB Discharge Report, OB Food/Drug Interaction Guide, OB Care at Home, Opioid Safety, OB Home Care, OB Vaginal Deliveries - [facility], Abnormal Bleeding Activity Restrictions/Additional Instructions: 1. Please call [facility] on next working day to make your post-operative appointment in 2 weeks. 2. Please stay home until you come back to the clinic on first post-operative check up. 3. Please follow instructions on your medications CAREFULLY. 4. If you have abdominal incision, do not cover it unless dressing is necessary because of drainage. OK to shower, but avoid bath. Leave steri-strips until they fall off. If they are still on one week after surgery, you may remove them. 5. If you had vaginal surgery or vaginal repair, Dr. Downs may instruct you to take SITZ bath. 6. Yellow, blood tinged odorous vaginal discharge is usually normal after hysterectomy or vaginal surgeries. 7. No sexual intercourse, tampons, or douches until you are completely released from the post-operative care. 8. Avoid constipation by eating right and maybe using some Metamucil or Milk of Magnesia. 9. All prescription refills are given during the working hours. Please do no wait till it runs out. Call the clinic at [phone] before your medication runs out. The clinic will get in touch with your doctor to prescribe medications if necessary. 10. Please remain within 40 mile radius from our hospital because emergencies do happen now and then during the post-operative period. 11. If you have stairs at home, take one step at a time slowly and minimize the number of trips. It helps to stay in one floor for the next few days. No lifting except what you can lift by one hand until you are released from the post-operative care. 12. Driving is discouraged until you are well healed. It may be 3-4 weeks before you feel strong enough to drive. You should be able to turn and look through the rear window without pain and you should be able to push the brake pedal very hard without pain before you drive. No fast rules, but SAFETY should be your primary concern. DO NOT drive if you are on sedating medications such as narcotics. 13. Call the clinic (during working hours) to make urgent appointment or go to the Emergency room, if any of the following occurs: i. Vaginal bleeding becomes heavy, more than a period. ii. Incision becomes red and sore, or drains pus. iii. Your temperature is over 100.4 or you have chill. iv. IV site becomes red and swollen (a little ``knot?? is usually OK) v. Persistent nausea and vomiting vi. Persistent constipation or diarrhea vii. Rash or allergic reaction to medications. Discharge Attestations BRUSH WORKER Time Spent in Discharge Care*: greater than 30 min Coding Level of Care Code Acute Belt Maker for Shayan Judge Diagnoses Supervision of other normal Z34.80 Sterilization consult Z30.09 Term delivered O80 Status post bilateral salpingectomy Z90.79
[2022-05-01 14:11] VITALS: BP 122/87; PULSE 67
[2022-05-01 14:21] VITALS: BP 122/87; PULSE 67; RESP 16; TEMP 36.7
== END 2022-05-01 14:30 | disposition home or self-care (01) | DRG 798 ==
LOC: OPOB 19:42 → OBGYN 19:42
PROVIDERS: Admitting Provider Obstetrics & Gynecology; Visit Provider Obstetrics & Gynecology
PROC: 10E0XZZ Delivery of Products of Conception, External Approach (ICD-10-PCS; CPT 58605; principal; 2022-04-30 12:00)
DX: O99.214 Obesity complicating childbirth (principal); Z37.0 Single live birth; Z3A.37 37 weeks gestation of pregnancy; O75.89 Other specified complications of labor and delivery; K59.09 Other constipation; L40.9 Psoriasis, unspecified; E55.9 Vitamin D deficiency, unspecified; Z30.2 Encounter for sterilization
CPT/HCPCS: 36415; 51702; 59025; 59409; 85025; 85027; 88302; 96374; 96376; 99211; G0378; J0690; J1885; J2405; J2795; J3010; J3490

== ENCOUNTER → 2022-06-22 14:38 | Outpatient (BNVA) | payer MEDICAID, SELFPAY | PROVIDERS: Referring Provider Nurse Practitioner Family; Visit Provider Podiatrist Foot & Ankle Surgery | DX: M72.2 Plantar fascial fibromatosis (principal); M79.671 Pain in right foot; M79.672 Pain in left foot | CPT/HCPCS: 20550; 73630; 99203; J3301; J3490 ==

== ENCOUNTER → 2023-01-24 11:42 | Outpatient (BNVA) | payer MEDICAID, SELFPAY | PROVIDERS: PCP Nurse Practitioner Family; Visit Provider Nurse Practitioner Family | DX: E55.9 Vitamin D deficiency, unspecified (principal); N92.6 Irregular menstruation, unspecified | CPT/HCPCS: 80053; 82306; 82607; 84443; 85025 ==

== ENCOUNTER 2023-03-20 14:00 | Outpatient (CLI) | payer MEDICAID, SELFPAY ==
--- NOTE | 2023-03-20 14:15 | US_ITS ---
WS: [id number] US pelv w/transvag [id number] HISTORY: R10.2 - Pelvic and perineal pain COMPARISON: 10/08/2019 Uterus: 10.2 cm x 5.3 cm x 4.7 cm. Normal size anteverted uterus. No fibroid or mass. Endometrium: 1.1 cm. Normal. No mass or increased vascularity. Right ovary: 3.1 cm x 2.6 cm x 1.9 cm. Normal size and vascularity, no cystic or solid masses. Left ovary: 3.4 cm x 2.6 cm x 1.9 cm. Normal size and vascularity, no cystic or solid masses. No free fluid in the cul-de-sac. US/US pelv w/transvag [id number] IMPRESSION: Normal pelvic ultrasound.
== END 2023-03-20 14:01 | disposition home or self-care (01) ==
LOC: RAD 14:02
PROVIDERS: PCP Nurse Practitioner Family; Visit Provider Nurse Practitioner Family
DX: R10.2 Pelvic and perineal pain (principal)
CPT/HCPCS: 76830; 76856

== ENCOUNTER 2023-06-28 08:08 | Outpatient (CLI) | payer MEDICAID, SELFPAY ==
--- NOTE | 2023-06-28 08:12 | XR_ITS ---
WS: [id number] EXAMINATION: XR knee LT 3V* [id number] REASON FOR EXAM: M25.562 - Pain in left knee COMPARISON: None available. ORDER DATE: 06/28/2023 8:12 AM FINDINGS: There is no sign of any acute osseous or articular abnormality. There are no specific soft tissue abn ormalities. IMPRESSION: No acute osseous change
== END 2023-06-28 08:09 | disposition home or self-care (01) ==
PROVIDERS: PCP Nurse Practitioner Family; Visit Provider Nurse Practitioner Family
DX: M25.562 Pain in left knee (principal)
CPT/HCPCS: 73562

== ENCOUNTER → 2023-09-17 13:34 | Outpatient (BNVA) | payer MEDICAID, SELFPAY | PROVIDERS: PCP Nurse Practitioner Family; Visit Provider Nurse Practitioner | DX: R19.7 Diarrhea, unspecified (principal) | CPT/HCPCS: 81000 ==

== ENCOUNTER → 2024-01-10 11:20 | Outpatient (BNVA) | payer MEDICAID, SELFPAY | PROVIDERS: PCP Nurse Practitioner Family; Visit Provider Nurse Practitioner Family | DX: E55.9 Vitamin D deficiency, unspecified (principal); L40.9 Psoriasis, unspecified; Z13.6 Encounter for screening for cardiovascular disorders | CPT/HCPCS: 80053; 80061; 82306; 84443; 85025 ==

== ENCOUNTER → 2024-01-29 15:20 | Outpatient (BNVA) | payer MEDICAID, SELFPAY | PROVIDERS: PCP Nurse Practitioner Family; Visit Provider Nurse Practitioner Family | DX: R30.0 Dysuria (principal); N39.0 Urinary tract infection, site not specified | CPT/HCPCS: 81003; 82043; 87086 ==

== ENCOUNTER → 2024-04-30 11:51 | Outpatient (BNVA) | payer MEDICAID, SELFPAY | PROVIDERS: PCP Nurse Practitioner Family; Visit Provider Nurse Practitioner Family | DX: R30.0 Dysuria | CPT/HCPCS: 81003; 87086 ==

== ENCOUNTER → 2024-05-15 16:40 | Outpatient (BNVA) | payer MEDICAID, SELFPAY | PROVIDERS: PCP Nurse Practitioner Family; Visit Provider Nurse Practitioner Family | DX: R30.0 Dysuria (principal) | CPT/HCPCS: 81000 ==

== ENCOUNTER → 2024-06-03 12:28 | Outpatient (BNVA) | payer MEDICAID, SELFPAY | PROVIDERS: PCP Nurse Practitioner Family; Visit Provider Nurse Practitioner Family | DX: Z12.4 Encounter for screening for malignant neoplasm of cervix (principal) | CPT/HCPCS: 88175 ==

== ENCOUNTER → 2024-08-13 10:18 | Outpatient (BNVA) | payer MEDICAID, SELFPAY | PROVIDERS: PCP Nurse Practitioner Family; Visit Provider Obstetrics & Gynecology | DX: R10.2 Pelvic and perineal pain (principal) | CPT/HCPCS: 76830 ==

== ENCOUNTER → 2025-04-02 09:23 | Outpatient (BNVA) | payer MEDICAID, SELFPAY | PROVIDERS: PCP Nurse Practitioner; Visit Provider Nurse Practitioner | DX: E55.9 Vitamin D deficiency, unspecified (principal); E66.9 Obesity, unspecified | CPT/HCPCS: 80053; 82306; 82728; 83550; 83735; 85025 ==

== ENCOUNTER 2025-06-03 19:16 | Emergency (ER) | payer MEDICAID, SELFPAY ==
[2025-06-03 19:24] VITALS: BP 105/71; PULSE 67; RESP 14; TEMP 36.7; O2SAT 100; BMI 30.7
[2025-06-03 19:55] LABS: Glucose Urine UA Negative (Normal); Nitrate Urine Negative (Negative); Specific Gravity, Urine 1.016 (1.005-1.030)
[2025-06-03 20:00] LABS: Add Urine Microscopic? YES
[2025-06-03 20:04] LABS: Hematocrit 34.5 % (36-47); Hemoglobin 10.50 g/dL (11.27-16.99); Mean Corpuscular HGB Conc 30.4 g/dL (30-55); Mean Corpuscular Hemoglobin 22.1 pg (27-33); Mean Corpuscular Volume 72.6 fl (85-98); Nucleated Red Blood Cells % 0 %; Platelet Count 342 10^3/cmm (157-399); Red Blood Count 4.75 10^6/uL (3.85-5.65); White Blood Count 12.37 10^3/uL (3.29-11.43)
[2025-06-03 20:26] LABS: Alanine Aminotransferase 8 U/L (0-33); Albumin Level 4.5 g/dL (3.5-5.2); Alkaline Phosphatase 69 U/L (35-105); Anion Gap 18.0 (5-19); Aspartate Amino Transferase 12 U/L (0-32); Blood Urea Nitrogen 8 mg/dL (6-20); Calcium 8.8 mg/dL (8.5-10.5); Carbon Dioxide 23 mmol/L (22-29); Chloride 103 mmol/L (98-107); Creatinine Clr Calc Pharmacy 142.6694; Globulin 3.0 g/dL (1.3-4.6); Glucose 93 mg/dL (65-115); Lipase 25 U/L (13-60); Osmolality Calculated 288 mOsm/kg (285-295); Potassium 4.0 mmol/L (3.5-5.1); Sodium 140 mmol/L (136-145); Total Protein 7.5 g/dL (6.6-8.7)
[2025-06-03 20:30] LABS: HCG, Serum Qual Negative (Negative)
--- NOTE | 2025-06-03 20:44 | CTR_ITS ---
PROCEDURE INFORMATION: Exam: CT Abdomen And Pelvis Without Contrast Exam date and time: 06/03/2025 9:08 PM Age: 34 years old Clinical indication: Abdominal pain; Flank; Left; Additional info: Flank pain TECHNIQUE: Imaging protocol: Computed tomography of the abdomen and pelvis without contrast. Radiation optimization: All CT scans at this facility use at least one of these dose optimization techniques: automated exposure control; mA and/or kV adjustment per patient size (includes targeted exams where dose is matched to clinical indication); or iterative reconstruction. COMPARISON: US transvaginal [id number] 08/13/2024 10:27 AM RADIATION DOSE METRICS: Total DLP (mGy-cm): 625.82 FINDINGS: Liver: No discrete liver lesions are apparent. Smooth hepatic contour. Gallbladder and biliary ducts: Prior cholecystectomy. Pancreas: No evidence of pancreatitis. No ductal dilation. Spleen: Spleen is within normal limits. Adrenal glands: Adrenal glands are within expected limits. Kidneys and ureters: No renal or ureteral calculi are identified. No hydronephrosis. Stomach and bowel: Prior gastric surgery. Small bowel loops are normal caliber with no obstruction. No colonic wall thickening. Appendix: No evidence of appendicitis. Intraperitoneal space: No free air. No significant fluid collection. Vasculature: No abdominal aortic aneurysm. Lymph nodes: No pathologically enlarged lymph nodes by CT size criteria. Urinary bladder: Unremarkable as visualized. Reproductive: Unremarkable as visualized. Bones/joints: No acute osseous abnormalities. Soft tissues: Unremarkable. CT/CT kidney stone [id number] IMPRESSION: No acute abdominal or pelvic abnormalities are identified.
[2025-06-03 20:49] VITALS: BP 116/72; PULSE 58; O2SAT 100
--- NOTE | 2025-06-03 21:34 | ED_ITS ---
HPI - Back Pain/Injury 2 General: Chief Complaint: Back Pain/Injury Stated Complaint: Back Pain Time Seen by Provider: 06/03/25 20:43 History of Present Illness: 34-year-old female who presents the [facility] with left flank pain. She says this started about 6 hours ago. Throbbing pain. Left flank. Worse with taking a deep breath. Worse with movement. She says it started when she went to sit down to urinate. No previous similar episodes. No fevers. No vomiting but she has had nausea. Normal bowel movements today. Related Data Previous Rx's ?Medication ?Instructions ?Recorded docusate sodium 100 mg capsule 100 mg PO BID #60 caps 04/30/24 (Stool Softener) polyethylene glycol 3350 17 17 g PO DAILY #510 grams 0 04/30/24 gram/dose oral powder (Miralax) rizatriptan 10 mg tablet (Maxalt) See Rx Instructions PO .COMPLEX 07/09/24 #14 tabs acarbose 50 mg tablet 50 mg PO TID #90 tabs cholecalciferol (vitamin D3) 50 100 mcg (2 x 50 mcg (2 ,000 unit)) 04/02/25 mcg (2,000 unit) capsule PO DAILY #60 caps ferrous sulfate 325 mg (65 mg 325 mg PO DAILY #30 tabs 04/04/25 iron) tablet,delayed release bupropion HCl 150 mg 24 hr tablet, 150 mg PO QAM #30 t abs 05/13/25 extended release (Wellbutrin XL) cephalexin 500 mg tablet 500 mg PO TID 5 days #15 tab s 06/03/25 cyclobenzaprine 10 mg tablet 10 mg PO Q8H PRN muscle s pasm #20 06/03/25 tabs diclofenac sodium 50 mg 50 mg PO BID PRN pain #14 ta bs 06/03/25 tablet,delayed release Allergies Allergy/AdvReac Type Severity Reaction Status Date / Time adhesive tape Allergy Mild ALGY-Bliste Verified 06/03/25 19:27 r Review of Systems 2 Narrative: Constitutional symptoms: Negative except as documented in HPI. Skin symptoms: Negative except as documented in HPI. Eye symptoms: Negative except as documented in HPI. ENMT symptoms: Negative except as documented in HPI. Respiratory symptoms: Negative except as documented in HPI. Cardiovascular symptoms: Negative except as documented in HPI. Gastrointestinal symptoms: Negative except as documented in HPI. Genitourinary symptoms: Negative except as documented in HPI. Musculoskeletal symptoms: Negative except as documented in HPI. Neurologic symptoms: Negative except as documented in HPI. Psychiatric symptoms: Negative except as documented in HPI. Endocrine symptoms: Negative except as documented in HPI. PFS ED 2 PFSH: Medical History (Updated 06/03/25 @ 21:59 by Laura Dominguez MD) Obesity (BMI 30.0-34.9) Constipation Vitamin D insufficiency Psoriasis (a type of skin inflammation) Surgical History H/O tubal ligation History of cholecystectomy 2018 History of gastric bypass (~2013) Laparoscopic gastric bypass performed in [place]. The patient does not know what type of actual procedure was performed. Family History Mother Thyroid disease Family/Other Thyroid disease Maternal uncle Father Diabetes Denies family history of Colon cancer Ovarian cancer Heart disease Hyperlipidemia Breast cancer Hypertension Uterine cancer Stroke Social History Smoking and tobacco/nicotine status: never used tobacco/nicotine Second hand smoke exposure: No Alcohol intake: never Substance/Drug Use: never Caregiver/support person: Yes (spouse) Lives independently: Yes Household members: spouse and children Marital status: service: No Current occupational status: unemployed Current gender identity: Female Special ralph needs: No Agree to transfusion: Yes Female Reproductive History: Date of last menstrual period: 06/02/25 Para: 4 Spontaneous abortions: Yes (2) Physical Exam 2 Narrative: EXAM NARRATIVE: General: Alert, no acute distress. Skin: Warm, dry. Head: Normocephalic, atraumatic. Neck: Supple, trachea midline. Eye: Extraocular movements are intact. Ears, nose, mouth and throat: mucosa moist. Cardiovascular: Regular, Normal peripheral perfusion. Respiratory: Lungs are clear to auscultation, respirations are non-labored, breath sounds are equal, Symmetrical chest wall expansion. Gastrointestinal: Soft, left flank pain, Non distended Musculoskeletal: Normal ROM, no deformity. Neurological: Alert and oriented, No focal neurological deficit observed. Psychiatric: Cooperative, appropriate mood & affect. Course 2 Vital Signs: Vital signs: Vital Signs Temperature 98.0 F 07/29/25 19:24 Pulse Rate 50 L 06/03/25 21:48 Respiratory Rate 14 06/03/25 19:24 Blood Pressure 108/76 06/03/25 21:48 Pulse Oximetry 100 06/03/25 21:48 Oxygen Delivery Me thod Room Air 06/03/25 21:48 MDM - Back Pain/Injury Medical Decision Making Medical decision making: Differential diagnosis including but not limited to and based on the above HPI, review of systems and physical exam: Ureterolithiasis. Urinary tract infection. Appendicitis. Cholecystis. Musculoskeletal / back pain. Pyelonephritis. Orders placed to evaluate differential diagnosis based on the above differential, HPI and physical exam Lab Review: Laboratory results were reviewed and interpreted by myself the emergency room physician. Lab work is fairly unremarkable. Mild leukocytosis. No anemia. No renal failure. Urinary tract infection possible with 16 whites and 3+ bacteria so that is being treated here. First dose Keflex here in the emergency room. CT of the abdomen pelvis without contrast: No acute abdominal or pelvic abnormalities. This was reviewed and interpreted by myself the emergency room physician. I also reviewed the radiology report. I reviewed the patient's medical record. Reexamination: Patient remained stable. No increased work of breathing. No altered mental status. No focal motor deficits. Assessment and plan: Flank pain Urinary tract infection ? P.o. Keflex, p.o. [place] and IM Toradol in the emergency room - Discharged home - Discussed plan with patient. Answered any questions. - Evaluation and treatment of this problem were appropriate in the emergency setting. Labs 06/03/25 19:58 06/03/25 19:58 Radiology Impressions Abdomen/Pelvis CT 06/03/25 20:44 IMPRESSION: No acute abdominal or pelvic abnormalities are identified. Laboratory Results WBC 12.37 10^3/uL (3.29-11.43) H 06/03/25 19:58 RBC 4.75 10^6/uL (3.85-5.65) 06/03/25 19:58 Hgb 10.50 g/dL (11.27-16.99) L 06/03/25 19:58 Hct 34.5 % (36-47) L 06/03/25 19:58 MCV 72.6 fl (85-98) L 06/03/25 19:58 MCH 22.1 pg (27-33) L 06/03/25 19:58 MCHC 30.4 g/dL (30-55) 06/03/25 19:58 RDW 16.0 % (12.1-15.1) H 06/03/25 19:58 Plt Count 342 10^3/cmm (157-399) 06/03/25 19:58 MPV 9.7 fL (7.4-10.4) 06/03/25 19:58 Neut % (Auto) 83.1 % 06/03/25 19:58 Lymph % (Auto) 7.6 % 06/03/25 19:58 [place] % (Auto) 5.3 % 06/03/25 19:58 Eos % (Auto) 2.8 % 06/03/25 19:58 Baso % (Auto) 0.7 % 06/03/25 19:58 Neut # (Auto) 10.27 10^3/uL (1.8-7.7) H 06/03/25 19:58 Lymph # (Auto) 0.9 10^3/uL (0.8-4.8) 06/03/25 19:58 [place] # (Auto) 0.7 10^3/uL (0.2-0.9) 06/03/25 19:58 Eos # (Auto) 0.4 10^3/uL (0.0-0.8) 06/03/25 19:58 Baso # (Auto) 0.1 10^3/uL (0.0-0.1) 06/03/25 19:58 Nucleated RBC % (auto) 0 % 06/03/25 19:58 Nucleated RBCs # 0.0 /100WBC 06/03/25 19:58 Sodium 140 mmol/L (136-145) 06/03/25 19:58 Potassium 4.0 mmol/L (3.5-5.1) 06/03/25 19:58 Chloride 103 mmol/L (98-107) 06/03/25 19:58 Carbon Dioxide 23 mmol/L (22-29) 06/03/25 19:58 Anion Gap 18.0 (5-19) 06/03/25 19:58 BUN 8 mg/dL (6-20) 06/03/25 19:58 Creatinine 0.6 mg/dL (0.5-0.9) 06/03/25 19:58 GFR Calculation 115.1 mL/min (90-130) 06/03/25 19:58 Glucose 93 mg/dL (65-115) 06/03/25 19:58 Calculated Osmolality 288 mOsm/kg (285-295) 06/03/25 19:58 Calcium 8.8 mg/dL (8.5-10.5) 06/03/25 19:58 Total Bilirubin 0.3 mg/dL (0.15-1.2) 06/03/25 19:58 AST 12 U/L (0-32) 06/03/25 19:58 ALT 8 U/L (0-33) 06/03/25 19:58 Alkaline Phosphatase 69 U/L (35-105) 06/03/25 19:58 Total Protein 7.5 g/dL (6.6-8.7) 06/03/25 19:58 Albumin 4.5 g/dL (3.5-5.2) 06/03/25 19:58 Globulin 3.0 g/dL (1.3-4.6) 06/03/25 19:58 Lipase 25 U/L (13-60) 06/03/25 19:58 HCG, Qual Negative (Negative) 06/03/25 19:58 Urine Color Yellow (Yellow) 06/03/25 19:36 Urine Appearance Clear (CLEAR) 06/03/25 19:36 Urine pH 5.5 (5-7) 06/03/25 19:36 Ur Specific Concrete 1.016 (1.005-1.030) 06/03/25 19:36 Urine Protein Trace (Negative) A 06/03/25 19:36 Urine Glucose (UA) Negative (Normal) 06/03/25 19:36 Urine Ketones 1+ (Negative) H 06/03/25 19:36 Urine Blood 1+ (Negative) A 06/03/25 19:36 Urine Nitrate Negative (Negative) 06/03/25 19:36 Urine Bilirubin Negative (Negative) 06/03/25 19:36 Urine Urobilinogen 1.0 mg/dL (Negative) 06/03/25 19:36 Ur Leukocyte Esterase Trace (Negative) A 06/03/25 19:36 Urine RBC 3-5 /hpf (0-2) 06/03/25 19:36 Urine WBC 6-10 /hpf (0-5) 06/03/25 19:36 Ur Squamous Epith Cells 0-5 /hpf (0-5) 06/03/25 19:36 Amorphous Sediment Not Reportable 06/03/25 19:36 Urine Bacteria 3+ /hpf (NONE) H 06/03/25 19:36 Hyaline Casts 0.81 /lpf 06/03/25 19:36 All radiology interpretation(s) finalized by discharge Discharge Plan Discharge Patient Disposition: Home Clinical Impression: Flank pain, UTI (urinary tract infection) Condition: Stable Prescriptions: New cyclobenzaprine 10 mg tablet 10 mg PO Q8H PRN (Reason: muscle spasm) Qty: 20 0RF cephalexin 500 mg tablet 500 mg PO TID 5 Days Qty: 15 0RF diclofenac sodium 50 mg tablet,delayed release (DR/EC) 50 mg PO BID PRN (Reason: pain) Qty: 14 0RF No Action rizatriptan [Maxalt] 10 mg tablet See Rx Instructions PO .COMPLEX Qty: 14 2RF Rx Instructions: take 1 tab at onset of headache; if no relief may repeat 1 tab after at least 2 hrs; max = 2 tabs/24 hr PO acarbose 50 mg tablet 50 mg PO TID Qty: 90 2RF Rx Instructions: take before food cholecalciferol (vitamin D3) 50 mcg (2,000 unit) capsule 100 mcg PO DAILY Qty: 60 0RF Rx Instructions: OTC bupropion HCl [Wellbutrin XL] 150 mg tablet extended release 24 hr 150 mg PO QAM Qty: 30 0RF docusate sodium [Stool Softener] 100 mg capsule 100 mg PO BID Qty: 60 5RF polyethylene glycol 3350 [Miralax] 17 gram/dose powder 17 g PO DAILY Qty: 510 5RF ferrous sulfate 325 mg (65 mg iron) tablet,delayed release (DR/EC) 325 mg PO DAILY Qty: 30 2RF Discharge Orders: Discharge ED (Routine); Ordered 06/03/25 Ordered By: Laura Dominguez Referrals: Barbara Rhodes FNP [Primary Care Provider, Family Practice] Discharge Diet: Usual diet Discharge Activity: Increase activity as tolerated Patient Instructions: Flank Pain (ED), Opioid Safety, Pain Management, Patient Portal & [place] Instructions Activity Restrictions/Additional Instructions: Thank you for choosing [facility] for your healthcare needs today. You have been screened and evaluated and felt safe for discharge. Health conditions do change or evolve sometimes and as such it is important that you follow up with your Primary Doctor to be re checked, 3-5 days is a general good time frame for follow up. You are always welcome to return to the ED for re assessment if your symptoms are worsening or you have new concerns Print Language: Citizen Of [place] Coding Level of Care Code ED International Banker for Shayan Judge
[2025-06-03 21:48] VITALS: BP 108/76; PULSE 50; O2SAT 100
[2025-06-03 22:02] VITALS: BP 115/74; PULSE 61; O2SAT 100
[2025-06-03] MEDS: HYDROcodone-acetaminophen 10-325 mg Tablet 1 TAB PO (22:14)
== END 2025-06-03 22:46 | disposition home or self-care (01) ==
PROVIDERS: Emergency Medicine; Emergency Provider Emergency Medicine; PCP Nurse Practitioner Family
DX: R10.9 Unspecified abdominal pain (principal); N39.0 Urinary tract infection, site not specified
CPT/HCPCS: 36415; 74176; 80053; 81001; 83690; 84703; 85025; 96372; 99284; J1885; J9999

== ENCOUNTER → 2025-06-16 13:15 | Outpatient (BNVA) | payer MEDICAID, SELFPAY | PROVIDERS: PCP Nurse Practitioner Family; Visit Provider Nurse Practitioner Family | DX: R10.2 Pelvic and perineal pain (principal) | CPT/HCPCS: 81000 ==

== ENCOUNTER → 2025-09-03 14:49 | Outpatient (BNVA) | payer MEDICAID, SELFPAY | PROVIDERS: PCP Nurse Practitioner Family; Visit Provider Nurse Practitioner Family | DX: Z11.3 Encounter for screening for infections with a predominantly sexual mode of transmission (principal); N93.9 Abnormal uterine and vaginal bleeding, unspecified | CPT/HCPCS: 80053; 84443; 85025; 87491; 87591; 87661 ==